=== PATIENT | male | born 1940 | race Caucasian/White ===

== ENCOUNTER 2016-06-03 05:02 | Observation (INO) | payer BC, OTHER ==
[2016-05-19 10:56] VITALS: BMI 32.0
[2016-05-19 11:09] LABS: BASO % 0.5 %; BASO ABS # 0.03 K/uL (0-0.2); COMPLETE YES; EOS % 2.7 %; HEMATOCRIT 37.4 % (42-52); IG% 0.5 %; LYMPH % 23.8 %; LYMPH ABS # 1.49 K/uL (1.2-3.4); MEAN CELL VOLUME 92.3 fL (80-100); MEAN CORPUSCULAR HEMOGLOBIN 33.1 pg (25-34); MEAN CORPUSCULAR HGB CONC 35.8 g/dl (32-36); MEAN PLATELET VOLUME 9.5 fL (7.4-10.4); MONO % 14.9 %; NEUT % 57.6 %; PLATELET COUNT 214 K/uL (130-400); RED BLOOD COUNT 4.05 M/uL (4.7-6.1); WHITE BLOOD COUNT 6.25 K/uL (4.8-10.8)
[2016-05-19 11:25] LABS: BUN/CREATININE RATIO 9.1 (10-20); CALCIUM 9.1 mg/dl (8.5-10.1); CREATININE 0.89 mg/dl (0.60-1.40); POTASSIUM 4.8 mmol/L (3.5-5.1)
[2016-05-19 11:26] LABS: URINE APPEARANCE CLEAR (CLEAR); URINE BILIRUBIN NEG (NEG); URINE COLOR YELLOW; URINE EPITHELIAL CELL AUTO 0-5 /lpf (0-5); URINE NITRITE NEG (NEG); UROBILINOGEN NEG (NEG)
[2016-05-19 11:27] LABS: MANUAL MICROSCOPIC REQUIRED? NO; REVIEW REQ? NO
--- NOTE | 2016-05-19 11:28 | PAT Medication Instructions ---
Service Date May 19, 2016. Current Home Medication List Albuterol Sulfate (Proventil Hfa), 2 PUFFS INH QID PRN for PRN Allopurinol (Zyloprim), 100 MG PO QAM Amlodipine (Norvasc), 5 MG PO QAM Atorvastatin (Lipitor), 10 MG PO Q2D Budesonide (Inhalation) (Pulmicort Flexhaler), 1 PUFFS INH BID Calcium Carbonate-Vitamin D (Calcium + D), 1 TAB PO BID Dexlansoprazole (Dexilant), 60 MG PO QAM Diclofenac (Voltaren), 75 MG PO BID Famotidine-Calcium Carbonate-M (Pepcid Complete), 1 CAP PO BID Gabapentin (Gabapentin), 3 TAB PO HS Hydroxyzine Hcl (Atarax), 10 MG PO HS PRN for Sleep Loperamide Hcl (Imodium), 2 CAP PO Q3D Montelukast Sodium (Singulair), 1 TAB PO QAM Mouthwashes (Biotene Dry Mouth Mouthwa), 1 DOSE PO QID Polyethylene Glycol-Propylene (Systane), 1 DROPS OP TID Sildenafil Citrate (Viagra), 50 MG PO UD Tamsulosin HCl (Tamsulosin HCl), 1 CAP PO QPM Telmisartan (Micardis), 80 MG PO QAM Xylitol (Mouth-Throat) (Xylimelts), 500 MG PO QID PRN for sight effects specialist Instructions For Your Scheduled Surgery - Check with surgeon for instructions: Diclofenac (Voltaren), 75 MG PO BID - Hold the following medications the morning of surgery: Telmisartan (Micardis), 80 MG PO QAM Sildenafil Citrate (Viagra), 50 MG PO UD Montelukast Sodium (Singulair), 1 TAB PO QAM Loperamide Hcl (Imodium), 2 CAP PO Q3D Xylitol (Mouth-Throat) (Xylimelts), 500 MG PO QID PRN for RN (mint) Famotidine-Calcium Carbonate-M (Pepcid Complete), 1 CAP PO BID Calcium Carbonate-Vitamin D (Calcium + D), 1 TAB PO BID - Take the following medications the morning of surgery with a sip of water: Polyethylene Glycol-Propylene (Systane), 1 DROPS OP TID Mouthwashes (Biotene Dry Mouth Mouthwa), 1 DOSE PO QID Dexlansoprazole (Dexilant), 60 MG PO QAM Budesonide (Inhalation) (Pulmicort Flexhaler), 1 PUFFS INH BID Atorvastatin (Lipitor), 10 MG PO Q2D Allopurinol (Zyloprim), 100 MG PO QAM Amlodipine (Norvasc), 5 MG PO QAM Albuterol Sulfate (Proventil Hfa), 2 PUFFS INH QID PRN for PRN (bring with you to hospital morning of surgery) - Take the following medications as scheduled the night before surgery: Tamsulosin HCl (Tamsulosin HCl), 1 CAP PO QPM Sildenafil Citrate (Viagra), 50 MG PO UD Polyethylene Glycol-Propylene (Systane), 1 DROPS OP TID Mouthwashes (Biotene Dry Mouth Mouthwa), 1 DOSE PO QID Loperamide Hcl (Imodium), 2 CAP PO Q3D Hydroxyzine Hcl (Atarax), 10 MG PO HS PRN for Sleep Gabapentin (Gabapentin), 3 TAB PO HS Famotidine-Calcium Carbonate-M (Pepcid Complete), 1 CAP PO BID Calcium Carbonate-Vitamin D (Calcium + D), 1 TAB PO BID Budesonide (Inhalation) (Pulmicort Flexhaler), 1 PUFFS INH BID Atorvastatin (Lipitor), 10 MG PO Q2D Albuterol Sulfate (Proventil Hfa), 2 PUFFS INH QID PRN for PRN If you have any questions please call us at [phone] (Maggie Mcelroy PA-C) or [phone] or [phone]
--- NOTE | 2016-05-19 11:59 | DIAGNOSTIC IMAGING REPORT ---
CHEST PREADMISSION(PA/LAT) CLINICAL HISTORY: Preoperative chest COMPARISON STUDY: 02/04/2015 FINDINGS: The cardiac and mediastinal contours remain stable. There are left hilar and mediastinal calcifications. There is a calcified granuloma within left midlung zone.[ There is no acute rectal consolidation. There is no failure. There are no pleural effusions. IMPRESSION: Old post inflammatory changes. No active disease in the chest. Electronically signed by: Arcadio Aiken M.D. 05/19/2016 11:58 AM Dictated Date/Time: 05/19/2016 11:57 AM
[2016-06-03] VITALS (9 sets, daily range): BP systolic 123–161; BP diastolic 68–80; PULSE 66–91; TEMP 36.4–36.7; O2SAT 96–99; Ht 175.3 cm; Wt 100.5 kg
[~2016-06-03] VITALS: Ht 175.3 cm; Wt 100.5 kg
[~2016-06-03 05:02] MED LIST: ALBUAER9 INH; ALLO100T PO; AMLO-110 PO; ATOR10TA88 PO; ATR10 PO; BUDE180I INH; CALC600T9 PO; DEXL60CA4 PO; DICL-201 PO; FAMOCHW27 PO; FLM4 PO; GABA1CAP4 PO; IMD/2 PO; MONT1TAB3 PO; MOUTLIQ79 PO; POLYSOL4 OP; TELM80TA PO; VGR50 PO; [UNRECOGNIZED DRUG - CODE] PO
[2016-06-03] MEDS ORDERED: CIPROFLOXACIN / D5W 400 MG IV SCH (06:00)
[2016-06-03] MEDS ORDERED: LACTATED RINGER'S 1000ML IV SCH (06:00)
[2016-06-03] MEDS ORDERED: Levothyroxine PO (06:11)
[2016-06-03] MEDS ORDERED: PROPOFOL IV EMULSION 10 MG/ML 20 ML VIAL IV ONE (06:38)
[2016-06-03] MEDS ORDERED: LIDOCAINE HCL 2% 2 ML VIAL (20MG/ML) ONE (06:38)
[2016-06-03] MEDS ORDERED: FENTANYL CITRATE INJ 50 MCG/1 ML 2 ML VIAL ONE (06:38)
[2016-06-03] MEDS ORDERED: ONDANSETRON INJ 2 MG/ML 2 ML VIAL ONE (06:38)
[2016-06-03] MEDS ORDERED: MIDAZOLAM HCL 1 MG/ML 2ML VIAL ONE (06:38)
[2016-06-03] MEDS ORDERED: DEXAMETHASONE SOD INJ 4 MG/ML VIAL ONE (06:38)
--- NOTE | 2016-06-03 07:10 | History & Physical Bridge Note ---
H&P Re-Evaluation Bridge Note: I have examined the patient, reviewed the History & Physical and in the interval since the performance of the History & Physical I have noted the following changes of clinical significance: No changes noted
[2016-06-03] MEDS ORDERED: ATROPINE SULFATE 0.1 MG/ML 5ML SYR IV PRN (07:45)
[2016-06-03] MEDS ORDERED: LABETALOL HCL IV 5 MG/ML 20ML IV PRN (07:45)
[2016-06-03] MEDS ORDERED: ONDANSETRON INJ 2 MG/ML 2 ML VIAL IV PRN (07:45)
[2016-06-03] MEDS ORDERED: FENTANYL CITRATE INJ 50 MCG/1 ML 2 ML VIAL IV PRN (07:45)
[2016-06-03] MEDS ORDERED: WATER, STERILE FOR INJ 10 ML VIAL ONE (08:07)
[2016-06-03] MEDS ORDERED: EpHEDrine SULFATE INJ 50 MG/ML AMP ONE (08:07)
--- NOTE | 2016-06-03 08:39 | [facility] Post Operative Brief Note ---
Immediate Operative Summary Operative Date Jun 03, 2016. Pre-Operative Diagnosis Benign prostatic hypertrophy with urinary obstruction Post-Operative Diagnosis Benign prostatic hypertrophy with urinary obstruction Procedure(s) Performed Button/Bipolar Transurethral Resection Prostate Surgeon Dr. Alas Sheet Rock Layer Surgeon(s) none Estimated Blood Loss 30 cc Findings small obstructing prostate Specimens none per surgeon Drains 22 danielson
[2016-06-03] MEDS ORDERED: IV FLUIDS COMPLETED PRN (09:00)
--- NOTE | 2016-06-03 10:07 | OPERATIVE REPORT ---
DATE OF OPERATION: 06/03/2016 PREOPERATIVE DIAGNOSIS: Benign prostatic hypertrophy with obstruction. POSTOPERATIVE DIAGNOSIS: Same. PROCEDURE PERFORMED: TURP. SURGEON: Dr. Alas. ANESTHESIA: General. INDICATIONS: The patient is a 75-year-old male with longstanding history of BPH with obstruction. He has been on oral medications and had a transurethral needle ablation in the distant past. He wishes to proceed to more definitive therapy with a transurethral resection of his prostate. DESCRIPTION OF THE PROCEDURE: The patient was taken to the operating room where general anesthesia was administered. He had Venodyne stockings placed and was given preoperative antibiotics. He was placed in dorsal lithotomy position and prepped and draped in the usual sterile fashion. A 21-Egyptian cystoscope was passed per urethra. The bladder was carefully examined with 30 and 70 degree lens and no further tumor seen. There was a moderate intravesical prostate and then the resectoscope was passed using the button. The prostate was resected, initially the bladder neck posteriorly down flush to the wall of the bladder with slightly further grooves on the right and left side. Next, the first half of the prostate was resected and then the second half of the prostate was resected starting from the lateral liao and then going anteriorly first on the right side and then the left side. This was continued down to the verumontanum. Care was taken not to resect beyond the verumontanum. There was minimal bleeding, but when there was bleeding it was cauterized. At the end of the procedure, there was a good channel from the verumontanum into the bladder. There were some stones that were irrigated out that indicated where the resection should stop. At the end of the procedure, there was no visible bleeding and the patient had a 22-Egyptian Hendrickson catheter passed with a catheter guide and 30 mL was inflated into the bladder. The patient was then transferred to the recovery room in stable condition. I attest to the content of the Intraoperative Record and any orders documented therein. Any exceptio ns are noted below.
--- NOTE | 2016-06-03 10:10 | Anesthesiology Progress Note ---
Anesthesia Post Op Note Date & Time Jun 03, 2016 at 10:10 Vital Signs Pain Intensity: 2 Vital Signs Past 12 Hours Date Time Temp Pulse Resp B/P Pulse Ox O2 Delivery O2 Flow Rate FiO2 06/03/16 09:47 65 11 06/03/16 09:47 65 11 100 06/03/16 09:45 144/69 06/03/16 09:42 65 14 100 06/03/16 09:42 65 14 06/03/16 09:40 148/72 06/03/16 09:37 64 13 06/03/16 09:37 64 13 100 06/03/16 09:36 66 13 06/03/16 09:36 66 13 100 06/03/16 09:35 146/74 06/03/16 09:31 64 13 100 06/03/16 09:31 65 13 06/03/16 09:30 143/71 06/03/16 09:26 64 10 100 06/03/16 09:26 63 10 06/03/16 09:25 138/76 06/03/16 09:21 67 16 06/03/16 09:21 68 16 100 06/03/16 09:20 144/71 06/03/16 09:16 62 7 100 06/03/16 09:16 63 7 06/03/16 09:15 138/73 06/03/16 09:11 64 22 100 06/03/16 09:11 64 22 06/03/16 09:10 147/73 06/03/16 09:06 63 12 06/03/16 09:06 62 12 100 06/03/16 09:05 145/70 06/03/16 09:02 36.4 64 18 145/70 100 Nasal Cannula 2 06/03/16 09:01 68 17 100 06/03/16 09:01 65 17 06/03/16 09:00 138/76 06/03/16 08:56 64 12 06/03/16 08:56 64 12 100 06/03/16 08:55 139/76 06/03/16 08:51 66 33 06/03/16 08:51 66 33 100 06/03/16 08:50 137/72 06/03/16 08:46 67 15 06/03/16 08:46 67 15 99 06/03/16 08:45 151/63 06/03/16 08:42 68 20 98 06/03/16 08:42 68 20 06/03/16 08:40 140/64 06/03/16 08:37 73 17 98 06/03/16 08:37 73 17 06/03/16 08:35 148/66 06/03/16 08:32 68 10 145/63 99 06/03/16 08:32 36.0 70 16 145/63 99 Mask 10 06/03/16 08:32 64 10 06/03/16 05:51 36.4 66 18 161/80 99 Room Air Notes Mental Status: alert / awake / arousable, participated in evaluation Pt Amnestic to Procedure: Yes Nausea / Vomiting: adequately controlled Pain: adequately controlled Airway Patency, RR, SpO2: stable & adequate BP & HR: stable & adequate Hydration State: stable & adequate Anesthetic Complications: no major complications apparent
[2016-06-03] MEDS: OXYCODONE/ACETAMINOPHEN 5-325 TAB PO PRN (11:25)
[2016-06-03] MEDS ORDERED: NURSING VERBAL MED ORDER SCH (18:30)
[2016-06-03] MEDS: SODIUM CHLORIDE 0.45% 1000ML 1,000 ML IV SCH (19:39)
[2016-06-03] MEDS ORDERED: ALBUTEROL HFA 8 GM INHALER INH PRN (19:45)
[2016-06-03] MEDS: hydrOXYzine HCL 10 MG TAB PO PRN (20:52)
[2016-06-03] MEDS: BUDESONIDE 90 MCG INH INH SCH (20:53)
[2016-06-03] MEDS: ARTIFICIAL TEARS OP SOLN OP SCH ×2 (20:54)
[2016-06-03] MEDS ORDERED: GABAPENTIN 300 MG CAP PO SCH (21:00)
[2016-06-04] MEDS: OXYCODONE/ACETAMINOPHEN 5-325 TAB PO PRN (02:13)
[2016-06-04 03:34] VITALS: BP 125/67; PULSE 74; TEMP 36.7; O2SAT 96
[2016-06-04] MEDS: SODIUM CHLORIDE 0.45% 1000ML 1,000 ML IV SCH (05:30)
[2016-06-04 07:52] VITALS: BP 130/78; PULSE 66; TEMP 36.4; O2SAT 97
[2016-06-04 09:00] VITALS: O2SAT 97
[2016-06-04] MEDS ORDERED: TELMISARTAN 40 MG TAB PO SCH (09:00)
[2016-06-04] MEDS ORDERED: PANTOprazole SOD 40 MG TAB PO SCH (09:00)
[2016-06-04] MEDS ORDERED: ALLOPURINOL 100 MG TAB PO SCH (09:00)
[2016-06-04] MEDS ORDERED: MONTELUKAST SOD 10 MG TAB PO SCH (09:00)
[2016-06-04] MEDS ORDERED: AMLODIPINE BESYLATE 5 MG TAB PO SCH (09:00)
[2016-06-04] MEDS: BUDESONIDE 90 MCG INH INH SCH (09:03)
[2016-06-04] MEDS: hydrOXYzine HCL 10 MG TAB PO PRN (09:03)
[2016-06-04] MEDS: ARTIFICIAL TEARS OP SOLN OP SCH ×2 (09:04)
--- NOTE | 2016-06-04 09:15 | Progress Note ---
Subjective Date of Service: Jun 04, 2016. (Mimi Villanueva CRNP) Subjective Pt evaluation today including: conversation w/ patient, conversation w/ family , physical exam, chart review, lab review Voiding: danielson catheter in place 75 year old male POD#1 TURP. Pt is doing well post op Danielson intact draining clear yellow urine free of clots. He is tolerating clear liquid diet- will advance to regular gluten free diet. IVF infusing OOB ambulating in hallway Passing flatus. AFVSS (Mimi Villanueva CRNP) Review of Systems Constitutional: No chills, No fever Eyes: No worsening of vision ENT: No hearing loss Respiratory: No cough, No shortness of breath Cardiac: No chest pain Abdomen: No nausea, No pain Musculoskeletal: No joint pain Psychiatric: No depression symptoms Heme: No abnormal bleeding/bruising Endo: No fatigue Skin: No rash (Mimi Villanueva CRNP) Objective Vital Signs Date Time Temp Pulse Resp B/P Pulse Ox O2 Delivery O2 Flow Rate FiO2 06/04/16 09:00 97 Room Air 06/04/16 07:52 36.4 66 16 130/78 97 Room Air 06/04/16 07:46 Room Air 06/04/16 03:34 36.7 74 16 125/67 96 Room Air 06/04/16 00:25 Room Air 06/03/16 23:06 36.7 85 18 133/73 97 Room Air 06/03/16 20:17 36.5 90 18 149/69 96 Room Air 06/03/16 15:42 36.5 91 18 123/72 96 Room Air 06/03/16 14:15 36.5 86 16 129/68 97 Room Air 06/03/16 13:15 36.7 91 16 124/76 97 2.0 06/03/16 12:15 77 16 127/71 99 2.0 06/03/16 11:45 36.6 72 16 146/72 98 2.0 06/03/16 11:15 36.4 71 16 138/75 98 Nasal Cannula 2.0 06/03/16 11:15 98 Nasal Cannula 2.0 06/03/16 11:15 98 Room Air 2.0 06/03/16 10:33 67 13 100 06/03/16 10:33 71 13 06/03/16 10:30 137/72 06/03/16 10:28 67 13 06/03/16 10:28 68 13 100 06/03/16 10:25 129/72 06/03/16 10:23 70 12 99 06/03/16 10:23 70 12 06/03/16 10:20 125/69 06/03/16 10:18 68 10 100 06/03/16 10:18 68 10 06/03/16 10:15 138/67 06/03/16 10:13 66 12 06/03/16 10:13 67 12 100 06/03/16 10:10 142/69 06/03/16 10:08 67 11 06/03/16 10:08 68 11 100 06/03/16 10:05 139/72 06/03/16 10:03 70 14 100 06/03/16 10:03 72 14 06/03/16 10:00 144/74 06/03/16 09:58 66 13 06/03/16 09:58 66 13 100 06/03/16 09:55 131/97 06/03/16 09:53 66 12 06/03/16 09:53 65 12 100 06/03/16 09:50 151/75 06/03/16 09:48 68 14 100 06/03/16 09:48 67 14 06/03/16 09:47 65 11 06/03/16 09:47 65 11 100 06/03/16 09:45 144/69 06/03/16 09:42 65 14 100 06/03/16 09:42 65 14 06/03/16 09:40 148/72 06/03/16 09:37 64 13 06/03/16 09:37 64 13 100 06/03/16 09:36 66 13 06/03/16 09:36 66 13 100 06/03/16 09:35 146/74 06/03/16 09:31 64 13 100 06/03/16 09:31 65 13 06/03/16 09:30 143/71 06/03/16 09:26 64 10 100 06/03/16 09:26 63 10 06/03/16 09:25 138/76 06/03/16 09:21 67 16 06/03/16 09:21 68 16 100 06/03/16 09:20 144/71 06/03/16 09:16 62 7 100 06/03/16 09:16 63 7 06/03/16 09:15 138/73 06/03/16 09:11 64 22 100 06/03/16 09:11 64 22 06/03/16 09:10 147/73 06/03/16 09:06 63 12 06/03/16 09:06 62 12 100 06/03/16 09:05 145/70 (Mimi Villanueva CRNP) Physical Exam General Appearance: WD/WN, no apparent distress Eyes: normal inspection ENT: hearing grossly normal Neck: no JVD Respiratory/Chest: no respiratory distress, no accessory muscle use Abdomen: soft Extremities: normal inspection, no pedal edema, no calf tenderness Neurologic/Psychiatric: alert, normal mood/affect, oriented x 3 Skin: normal color, warm/dry (Mimi Villanueva CRNP) Assessment and Plan s/p TURP Doing well Will advance diet to regular gluten free. Personally pulled danielson without difficulty If he is able to tolerate diet and passes TOV- okay to d/c home. If unable to void please bladder scan and call . Rx for Macrodantin, colace and stool softener. (Mimi Villanueva CRNP)
[2016-06-04] MEDS ORDERED: NITR1CAP32 PO (09:19)
[2016-06-04] MEDS ORDERED: CLC100 PO (09:19)
[2016-06-04] MEDS ORDERED: OXYC-57 PO (09:19)
--- NOTE | 2016-06-04 09:21 | Discharge Instructions ---
Discharge Instructions Date of Service Jun 04, 2016. (Mimi Villanueva CRNP) Admission Reason for Admission: Benign Prostatic Hypertrophy (Mimi Villanueva CRNP) Discharge Discharge Diagnosis / Problem: Benign prostatic hypertrophy (Mimi Villanueva CRNP) Discharge Goals Goal(s): Improve function, Improve disease control, Prevent Disease Progression (Mimi Villanueva CRNP) Activity Recommendations Activity Limitations: per Instructions/Follow-up section . (Mimi Villanueva CRNP) Instructions / Follow-Up Instructions / Follow-Up 1. Do not lift >15lbs x 6 weeks. 2. No heavy exercise x 6 weeks. You may engage in light activity such as walking and stairs as tolerated. 3. No sexual intercourse until cleared by Dr. Alas. 4. Do not drive while taking narcotics. 5. Finish all of the antibiotic you have been prescribed. 6. Follow-up as scheduled. Please call our office at [phone] if you need to reschedule for any reason. . (Mimi Villanueva CRNP) Current Hospital Diet Hospital Diet(s): Clear Liquid Diet, Gluten Free Diet (Mimi Villanueva CRNP) Discharge Diet Recommended Diet: Regular Diet (gluten free) (Mimi Villanueva CRNP) Procedures Procedures Performed: Button/Bipolar Transurethral Resection Prostate (Mimi Villanueva CRNP) Pending Studies Studies pending at discharge: no (Mimi Villanueva CRNP) Medical Emergencies . Who to Call and When: Medical Emergencies: If at any time you feel your situation is an emergency, please call 911 immediately. . (Mimi Villanueva CRNP) Non-Emergent Contact Non-Emergency issues call your: Primary Care Provider, Urologist Call Non-Emergent contact if: temperature is above 101.5 . (Mimi Villanueva CRNP) . "Provider Documentation" section prepared by Mimi Villanuvea. (Mimi Villanueva CRNP) VTE Core Measure Inpt VTE Proph given/why not?: Unfractionated heparin SQ, SCD's (Mimi Villanueva CRNP) [place] Drug Monitoring Program Search Results: patient reviewed within database (Mimi Villanueva CRNP)
[2016-06-04 09:55] VITALS: BP 130/78; PULSE 66; TEMP 36.4; O2SAT 97
[2016-06-04] MEDS ORDERED: ATORVASTATIN 10 MG TAB PO SCH (21:00)
--- NOTE | 2016-06-09 14:40 | DISCHARGE SUMMARY ---
HISTORY OF PRESENTATION: The patient is a 75-year-old male with a long history of BPH who has been on medications who elected to have a TURP for obstructive and irritative voiding symptoms of BPH. The patient was admitted as an outpatient on 06/03/2016 and had an uncomplicated transurethral resection of his prostate. At the end of the procedure, he had minimal bleeding and a good result with open channel from his verumontanum into his bladder. A Hendrickson catheter was placed. The patient's urine was cleared. He was admitted to the hospital for overnight observation. The next day his Hendrickson was removed, he was able to void and he was discharged to home in stable condition with instructions to follow up or call for any problems.
[2016-08-23] MEDS ORDERED: LEVO150T9 PO (14:51)
[2016-08-23] MEDS ORDERED: GLC/500 PO (14:51)
[2016-08-23] MEDS ORDERED: AMLO-114 PO (14:51)
[2016-08-23] MEDS ORDERED: BUDE180I INH (14:53)
[2016-08-23] MEDS ORDERED: VGR50 PO (14:53)
[2016-08-23] MEDS ORDERED: PEPCID PO (14:53)
== END 2016-06-04 12:43 | disposition home or self-care (01) ==
LOC: ENRESERVDT → ENRESERVTM → C.ACU 05:02 → C.MSN 08:43
PROVIDERS: ADMIT Urology; ATTEND Urology
DX: N40.1 Benign prostatic hyperplasia with lower urinary tract symptoms (principal); N13.8 Other obstructive and reflux uropathy; J45.909 Unspecified asthma, uncomplicated; K21.9 Gastro-esophageal reflux disease without esophagitis; E78.00 Pure hypercholesterolemia, unspecified; I10 Essential (primary) hypertension; Z80.0 Family history of malignant neoplasm of digestive organs; Z82.49 Family history of ischemic heart disease and other diseases of the circulatory system

== ENCOUNTER → 2016-06-17 | Outpatient (CLI) | payer BC ==
[~2016-06-17] MED LIST changes: +AMLO-114 PO; +ATOR10TA82 PO; -ATOR10TA88 PO; +CLC100 PO; -FLM4 PO; +GLC/500 PO; +LEVO150T9 PO; +Levothyroxine PO; +OXYC-57 PO; +PEPCID PO
--- NOTE | 2016-06-23 08:06 | CODING QUERY MEDICAL NECESSITY ---
SUPPORTING DIAGNOSIS NEEDED Salvador HERNANDEZ, A supporting diagnosis is required for the test/procedure performed on this patient in order for us to be reimbursed by the patient's insurance. Please provide a supporting diagnosis for the following test/procedure listed below next to the test name along with your signature. *If there is no additional diagnosis for this patient that would support the following test/procedure please document that below next to the test/procedure. Test(s)/Procedure(s) that require a supporting diagnosis: * ([id number]) DXA BONE DENSITY, AXIAL DIAGNOSIS: DATE OF SERVICE: 06/17/16 Provider Signature: Date: Thank you Donell Cadena [facility] Information Management Once completed, please kindly fax back to [phone] For questions please call [phone]
== END | disposition home or self-care (01) ==
LOC: C.MAMM 10:30
PROVIDERS: ATTEND Registered Nurse
DX: K21.9 Gastro-esophageal reflux disease without esophagitis (principal); K90.0 Celiac disease

== ENCOUNTER → 2016-06-17 | Outpatient (CLI) | payer BC | END | disposition home or self-care (01) | LOC: C.LABSPEC 17:31 | PROVIDERS: ATTEND Urology | DX: R39.9 Unspecified symptoms and signs involving the genitourinary system (principal) ==

== ENCOUNTER → 2016-07-05 | Outpatient (CLI) | payer BC ==
[2016-07-05 19:18] LABS: ALT/SGPT 58 U/L (12-78); AST/SGOT 25 U/L (15-37); BLOOD UREA NITROGEN 9 mg/dl (7-18); BUN/CREATININE RATIO 8.6 (10-20); CALCIUM 9.7 mg/dl (8.5-10.1); CARBON DIOXIDE 28 mmol/L (21-32); CHLORIDE 101 mmol/L (98-107); CHOLESTEROL 161 mg/dl (0-200); CREATININE 0.99 mg/dl (0.60-1.40); GLUCOSE 203 mg/dl (70-99); HDL CHOLESTEROL 40 mg/dl; LDL CHOLESTEROL CALCULATED 88 mg/dl; POTASSIUM 4.2 mmol/L (3.5-5.1); SODIUM 136 mmol/L (136-145); TRIGLYCERIDES 165 mg/dl (0-150); VERY LOW DENSITY LIPOPROT CALC 33 mg/dl
[2016-07-05 19:26] LABS: ALB/GLOB RATIO 1.3 (0.9-2); ALKALINE PHOSPHATASE 78 U/L (45-117); THYROID STIMULATING HORMONE 0.232 uIu/ml (0.300-4.500)
[2016-07-06 06:32] LABS: ESTIMATED AVERAGE GLUCOSE 163 mg/dl; HA1C FLAG Normal (Normal)
== END | disposition home or self-care (01) ==
LOC: C.LABBFT 12:06
PROVIDERS: ATTEND Internal Medicine
DX: R73.01 Impaired fasting glucose (principal); E78.00 Pure hypercholesterolemia, unspecified; E03.9 Hypothyroidism, unspecified

== ENCOUNTER 2016-09-16 06:23 | Day surgery (SDC) | payer BC ==
[2016-08-23 14:57] VITALS: BMI 31.0
--- NOTE | 2016-08-23 15:34 | PAT Medication Instructions ---
Service Date Aug 23, 2016. Current Home Medication List Albuterol Sulfate (Proventil Hfa), 2 PUFFS INH QID PRN for PRN Allopurinol (Zyloprim), 100 MG PO QAM Amlodipine (Norvasc), 10 MG PO QAM Atorvastatin (Lipitor), 10 MG PO Q2D Budesonide (Inhalation) (Pulmicort Flexhaler), 1 PUFFS INH BID Calcium Carbonate-Vitamin D (Calcium + D), 1 TAB PO BID Dexlansoprazole (Dexilant), 60 MG PO QAM PRN for PRN Diclofenac (Voltaren), 75 MG PO QAM Gabapentin (Gabapentin), 3 TAB PO HS Hydroxyzine Hcl (Atarax), 10 MG PO HS PRN for Sleep Levothyroxine Sodium (Levothyroxine Sodium), 1 TAB PO HS Loperamide Hcl (Imodium), 2 CAP PO Q3D Metformin Hcl (Glucophage), 500 MG PO BID Montelukast Sodium (Singulair), 1 TAB PO QAM Mouthwashes (Biotene Dry Mouth Mouthwa), 1 DOSE PO QID Polyethylene Glycol-Propylene (Systane), 1 DROPS OP TID Sildenafil Citrate (Viagra), 50 MG PO PRN Telmisartan (Micardis), 80 MG PO QAM Xylitol (Mouth-Throat) (Xylimelts), 500 MG PO QID PRN for RN [Pepcid], 10 MG PO PRN Medication Instructions For Your Scheduled Surgery Diclofenac (Voltaren), 75 MG PO QAM (per surgeon instructions) - Hold the following medications 48 hours prior to surgery: Metformin Hcl (Glucophage), 500 MG PO BID - Hold the following medications 24 hours prior to surgery: Sildenafil Citrate (Viagra), 50 MG PO PRN - Hold the following medications the morning of surgery: Xylitol (Mouth-Throat) (Xylimelts), 500 MG PO QID PRN for RN Telmisartan (Micardis), 80 MG PO QAM Loperamide Hcl (Imodium), 2 CAP PO Q3D Calcium Carbonate-Vitamin D (Calcium + D), 1 TAB PO BID - Take the following medications the morning of surgery with a sip of water: Pepcid 10 MG PO PRN Polyethylene Glycol-Propylene (Systane), 1 DROPS OP TID Mouthwashes (Biotene Dry Mouth Mouthwa), 1 DOSE PO QID (do not swallow) Montelukast Sodium (Singulair), 1 TAB PO QAM Dexlansoprazole (Dexilant), 60 MG PO QAM PRN for PRN Budesonide (Inhalation) (Pulmicort Flexhaler), 1 PUFFS INH BID Allopurinol (Zyloprim), 100 MG PO QAM Amlodipine (Norvasc), 10 MG PO QAM Albuterol Sulfate (Proventil Hfa), 2 PUFFS INH QID PRN for PRN (bring with you to hospital on day of surgery) - Take the following medications as scheduled the night before surgery: Xylitol (Mouth-Throat) (Xylimelts), 500 MG PO QID PRN for RN Polyethylene Glycol-Propylene (Systane), 1 DROPS OP TID Mouthwashes (Biotene Dry Mouth Mouthwa), 1 DOSE PO QID Loperamide Hcl (Imodium), 2 CAP PO Q3D Levothyroxine Sodium (Levothyroxine Sodium), 1 TAB PO HS Hydroxyzine Hcl (Atarax), 10 MG PO HS PRN for Sleep Gabapentin (Gabapentin), 3 TAB PO HS Calcium Carbonate-Vitamin D (Calcium + D), 1 TAB PO BID Budesonide (Inhalation) (Pulmicort Flexhaler), 1 PUFFS INH BID Albuterol Sulfate (Proventil Hfa), 2 PUFFS INH QID PRN for PRN Atorvastatin (Lipitor), 10 MG PO Q2D If you have any questions please call us at [phone] or [phone] ( Margareth) or [phone]
[2016-08-23 15:55] LABS: BASO % 0.5 %; BASO ABS # 0.03 K/uL (0-0.2); COMPLETE YES; EOS % 1.8 %; HEMATOCRIT 38.1 % (42-52); IG% 0.2 %; LYMPH % 24.9 %; LYMPH ABS # 1.53 K/uL (1.2-3.4); MEAN CORPUSCULAR HEMOGLOBIN 33.2 pg (25-34); MEAN CORPUSCULAR HGB CONC 34.9 g/dl (32-36); MEAN PLATELET VOLUME 9.9 fL (7.4-10.4); MONO % 12.2 %; NEUT % 60.4 %; PLATELET COUNT 232 K/uL (130-400); RED BLOOD COUNT 4.01 M/uL (4.7-6.1); WHITE BLOOD COUNT 6.15 K/uL (4.8-10.8)
[2016-08-23 16:12] LABS: BUN/CREATININE RATIO 6.1 (10-20); CALCIUM 9.9 mg/dl (8.5-10.1); CREATININE 1.1 mg/dl (0.60-1.40); POTASSIUM 4.4 mmol/L (3.5-5.1)
[~2016-09-16] VITALS: Ht 175.3 cm; Wt 90.0 kg
[~2016-09-16 06:23] MED LIST changes: -AMLO-110 PO; -ATOR10TA82 PO; +ATOR10TA88 PO; -CLC100 PO; -FAMOCHW27 PO; +LACTATED RINGER'S 1000ML 1,000 ML IV SCH; -Levothyroxine PO; -OXYC-57 PO
[2016-09-16 07:09] VITALS: BP 149/73; PULSE 62; TEMP 36.5; O2SAT 97; Ht 175.3 cm; Wt 90.0 kg
--- NOTE | 2016-09-16 07:31 | History & Physical Bridge Note ---
H&P Re-Evaluation Bridge Note: I have examined the patient, reviewed the History & Physical and in the interval since the performance of the History & Physical I have noted the following changes of clinical significance: No changes noted pt marked, bedside
[2016-09-16] MEDS ORDERED: PROPOFOL IV EMULSION 10 MG/ML 20 ML VIAL IV ONE (07:49)
[2016-09-16] MEDS ORDERED: DEXAMETHASONE SOD INJ 4 MG/ML VIAL ONE (07:49)
[2016-09-16] MEDS ORDERED: ONDANSETRON INJ 2 MG/ML 2 ML VIAL ONE (07:49)
[2016-09-16] MEDS ORDERED: LIDOCAINE HCL 2% 2 ML VIAL (20MG/ML) ONE (07:49)
[2016-09-16] MEDS ORDERED: FENTANYL CITRATE INJ 50 MCG/1 ML 2 ML VIAL ONE ×2 (07:50→09:27)
[2016-09-16] MEDS ORDERED: BUPIVACAINE 0.5 % 5 MG/1 ML MPF 30ML VIAL ONE (07:50)
[2016-09-16] MEDS ORDERED: BACITRACIN 50000 UNIT VIAL ONE (07:50)
[2016-09-16] MEDS ORDERED: CEFAZOLIN SOD 1 GM VIAL ONE (08:19)
[2016-09-16] MEDS ORDERED: FENTANYL CITRATE INJ 50 MCG/1 ML 2 ML VIAL IV PRN (09:00)
[2016-09-16] MEDS ORDERED: ATROPINE SULFATE 0.1 MG/ML 5ML SYR IV PRN (09:00)
[2016-09-16] MEDS ORDERED: ONDANSETRON INJ 2 MG/ML 2 ML VIAL IV PRN ×2 (09:00→09:30)
[2016-09-16] MEDS ORDERED: EpHEDrine SULFATE INJ 50 MG/ML AMP IV PRN (09:00)
--- NOTE | 2016-09-16 09:14 | [facility] Post Operative Brief Note ---
Immediate Operative Summary Operative Date Sep 16, 2016. Pre-Operative Diagnosis Right recurrent inguinal hernia Post-Operative Diagnosis recurrent direct defect and lipoma cord Procedure(s) Performed Open Recurrent Right Direct Inguinal Hernia Repair with Mesh(marlex) Lipoma of cord (excision) Surgeon Dr Escudero Surgical Services Manager Surgeon(s) Juana Dove PA-C Estimated Blood Loss 5ml Findings rec direct defect and long lipoma cord anne 10cm length Specimens A. Lipoma of cord Anesthesia .5% marcaine plain(1occ)
[2016-09-16] MEDS ORDERED: SODIUM CHLORIDE 0.9% 1000ML 1,000 ML IV SCH (09:20)
--- NOTE | 2016-09-16 09:21 | [facility] Operative Report ---
Operative Report Operative Date Sep 16, 2016. Pre-Operative Diagnosis Right recurrent inguinal hernia Post-Operative Diagnosis recurrent right direct hernia and lipoma cord Procedure(s) Performed open repair of direct rec hernia with marlex mesh and excision lipoma cord Surgeon Dr Escudero Shell Trim Tool Setter Surgeon(s) Juana Dove PA-C Estimated Blood Loss 5ml Findings direct defect and deepak(10cm) lipoma cord Specimens A. Lipoma of cord Anesthesia .5% marcaine plain(1occ) Complication(s) None Disposition Recovery Room / PACU Indications recurrent pain and bulge right groin s/p lap repair of hernia anne 3 years ago Description of Procedure open repair with 4 inch incision defined nerve and dissected rec direct defect and excised lipoma ligating base with 2-0 silk marlex mesh sutured with 2-0 nylon symp pubis selving portion ing ligament and conjoined tendon reconstruction int ring that only accomodate tip of hemostat, placed sub ext oblique fascia, 2-0 dexon sub cut latoya for skin edges dressing applied I attest to the content of the Intraoperative Record and any orders documented therein. Any exceptions are noted below.
[2016-09-16] MEDS ORDERED: OXYC-57 PO (09:22)
--- NOTE | 2016-09-16 09:26 | Discharge Instructions ---
Discharge Instructions Date of Service Sep 16, 2016. Admission Reason for Admission: Recurrent Right Inguinal Hernia Discharge Discharge Diagnosis / Problem: Recurrent Right Inguinal Hernia Discharge Goals Goal(s): Decrease discomfort, Improve function Activity Recommendations Activity Limitations: as noted below Lifting Limitations: no more than 10 pounds Exercise/Sports Limitations: until after follow-up appointment May Resume Sexual Activity: after follow-up appointment Shower/Bathe: tomorrow Driving or Machine Use: resume 3 days after discharge . Instructions / Follow-Up Instructions / Follow-Up It is recommended that you place an ice pack on the area for the next [address]. [address] ice pack directly on the skin. Please follow-up in the office with nursing for staple removal. Please call to make an appointment if you do not have one already. Please call [phone] with any questions or concerns. Our office is located at [address] [place] [address] [place] Current Hospital Diet Patient's current hospital diet: Discharge Diet Recommended Diet: Regular Diet Procedures Procedures Performed: Open Recurrent Right Direct Inguinal Hernia Repair with Mesh(marlex) Lipoma of cord (excision) Pending Studies Studies pending at discharge: yes List of pending studies: Pathology report. Laboratory Results Hemoglobin A1c Test 07/05/16 12:18 Range/Units Estimated Average Glucose 163 mg/dl Hemoglobin A1c 7.3 H 4.5-5.6 % Lipid Panel Test 07/05/16 12:18 Range/Units Triglycerides Level 165 H 0-150 mg/dl Cholesterol Level 161 0-200 mg/dl HDL Cholesterol 40 mg/dl Cholesterol/HDL Ratio 4.0 LDL Cholesterol, Calculated 88 mg/dl Medical Emergencies . Who to Call and When: Medical Emergencies: If at any time you feel your situation is an emergency, please call 911 immediately. . Non-Emergent Contact Non-Emergency issues call your: Primary Care Provider, Surgeon Call Non-Emergent contact if: temperature is above 101.5, your pain is not controlled, wound has increased drainage, wound has increased redness . "Provider Documentation" section prepared by Juana Dove. . VTE Core Measure Inpt VTE Proph given/why not?: SCD's [place] Drug Monitoring Program Search Results: patient reviewed within database, no issues identified
[2016-09-16] MEDS ORDERED: OXYCODONE/ACETAMINOPHEN 5-325 TAB PO PRN ×2 (09:30)
[2016-09-16 10:10] VITALS: BP 135/66; PULSE 54; TEMP 36.5; O2SAT 96
--- NOTE | 2016-09-16 10:16 | Anesthesiology Progress Note ---
Anesthesia Post Op Note Date & Time Sep 16, 2016 at 10:16 Vital Signs Pain Intensity: 1 Vital Signs Past 12 Hours Date Time Temp Pulse Resp B/P (MAP) Pulse Ox O2 Delivery O2 Flow Rate FiO2 09/16/16 10:02 60 16 09/16/16 10:02 60 16 97 09/16/16 10:01 130/64 09/16/16 09:57 59 16 95 09/16/16 09:57 59 16 09/16/16 09:56 133/63 09/16/16 09:52 61 15 09/16/16 09:52 60 15 97 09/16/16 09:51 133/64 09/16/16 09:48 36.7 62 16 133/64 (73) 97 Room Air 09/16/16 09:47 61 4 97 09/16/16 09:47 61 4 09/16/16 09:46 139/70 09/16/16 09:42 59 6 98 09/16/16 09:42 59 6 09/16/16 09:41 149/72 09/16/16 09:37 57 2 09/16/16 09:37 56 2 94 09/16/16 09:36 55 12 130/68 97 09/16/16 09:36 55 12 09/16/16 09:31 58 8 09/16/16 09:31 59 8 127/68 98 09/16/16 09:26 61 12 123/64 100 09/16/16 09:26 60 12 09/16/16 09:22 125/63 09/16/16 09:21 51 13 100 09/16/16 09:21 36.0 60 16 125/63 100 Mask 10 09/16/16 09:21 51 13 09/16/16 07:09 36.5 62 18 149/73 (98) 97 Room Air Notes Mental Status: alert / awake / arousable, participated in evaluation Pt Amnestic to Procedure: Yes Nausea / Vomiting: adequately controlled Pain: adequately controlled Airway Patency, RR, SpO2: stable & adequate BP & HR: stable & adequate Hydration State: stable & adequate Anesthetic Complications: no major complications apparent
[2016-09-16 10:40] VITALS: BP 137/69; PULSE 63; TEMP 36.5; O2SAT 97
[2016-09-16 11:10] VITALS: BP 129/64; PULSE 63; TEMP 36.5; O2SAT 96
== END 2016-09-16 11:45 | disposition home or self-care (01) ==
LOC: C.ACU 06:23
PROVIDERS: ATTEND Surgery
DX: K40.91 Unilateral inguinal hernia, without obstruction or gangrene, recurrent (principal); D17.6 Benign lipomatous neoplasm of spermatic cord; I10 Essential (primary) hypertension; E78.00 Pure hypercholesterolemia, unspecified; E11.42 Type 2 diabetes mellitus with diabetic polyneuropathy; E55.9 Vitamin D deficiency, unspecified; D64.9 Anemia, unspecified; J45.909 Unspecified asthma, uncomplicated; E03.9 Hypothyroidism, unspecified; N40.1 Benign prostatic hyperplasia with lower urinary tract symptoms; N13.8 Other obstructive and reflux uropathy; N52.9 Male erectile dysfunction, unspecified; G47.00 Insomnia, unspecified; Z79.84 Long term (current) use of oral hypoglycemic drugs; Z79.899 Other long term (current) drug therapy

== ENCOUNTER → 2017-01-28 | Outpatient (CLI) | payer BC ==
[~2017-01-28] MED LIST changes: +ATOR10TA82 PO; -ATOR10TA88 PO; -LACTATED RINGER'S 1000ML 1,000 ML IV SCH
--- NOTE | 2017-01-28 13:53 | DIAGNOSTIC IMAGING REPORT ---
ABDOMEN ULTRASOUND FOR HERNIA CLINICAL HISTORY: R10.31 Right inguinal pain Z98.890 S/P right inguinal hernia repa COMPARISON STUDY: Abdominal ultrasound 12/15/2015. FINDINGS: Real-time sonographic imaging of the right inguinal region was performed. There appears to be a right inguinal mesh. No evidence for recurrent or residual inguinal hernia. IMPRESSION: No evidence for right inguinal hernia. Electronically signed by: Clovis Villegas M.D. 01/28/2017 1:52 PM Dictated Date/Time: 01/28/2017 1:51 PM
== END | disposition home or self-care (01) ==
LOC: C.ULTRBC 12:43
PROVIDERS: ATTEND Internal Medicine
DX: R10.31 Right lower quadrant pain (principal); Z98.890 Other specified postprocedural states

== ENCOUNTER → 2017-04-22 | Outpatient (CLI) | payer OTHER ==
[~2017-04-22] MED LIST changes: +GABA-1219 PO; -GABA1CAP4 PO
== END | disposition home or self-care (01) ==
LOC: C.LABBFT 15:31
PROVIDERS: ATTEND Physician Assistant Medical
DX: E03.9 Hypothyroidism, unspecified (principal)

== ENCOUNTER → 2017-06-06 | Outpatient (CLI) | payer OTHER | END | disposition home or self-care (01) | LOC: C.LABBFT 10:30 | PROVIDERS: ATTEND Physician Assistant Medical | DX: E03.9 Hypothyroidism, unspecified (principal) ==

== ENCOUNTER 2018-06-08 04:55 | Inpatient (IN) ==
--- NOTE | 2018-05-16 19:56 | PAT Medication Instructions ---
Medication Instructions Date of Service May 17, 2018 Home Medications Pepcid Complete 1 dose PO NEEDED allopurinol 100 mg PO QAM atorvastatin 10 mg PO HS calcium carbonate-vitamin D3 1 tab PO DAILY dexlansoprazole [Dexilant] 60 mg PO NEEDED diltiazem HCl 240 mg PO QAM esomeprazole magnesium [Nexium] 20 mg PO QAM gabapentin 3 tab PO HS hydrocortisone [Cortisone] 1 applic TOPICAL NEEDED hydroxyzine HCl 10 mg PO QPM levothyroxine [Synthroid] 125 mcg PO QPM loperamide-simethicone [Imodium] 1 tab PO NEEDED metformin 500 mg PO QAM montelukast 10 mg PO QAM multivitamin [Multiple Vitamins] 1 TAB PO DAILY tamsulosin 0.4 mg PO DAILY telmisartan 80 mg PO QAM xylitol [Xylimelts] 1 dose NEEDED albuterol sulfate 2 puff INHALATION Q6H NEEDED budesonide [Pulmicort Flexhaler] 2 inh INHALATION BID sildenafil [Viagra] 50 mg PO DAILY NEEDED STOP taking 24 hours before surgery hydrocortisone [Cortisone] 1 applic TOPICAL NEEDED sildenafil [Viagra] 50 mg PO DAILY NEEDED DO NOT take the morning of surgery allopurinol 100 mg PO QAM calcium carbonate-vitamin D3 1 tab PO DAILY metformin 500 mg PO QAM montelukast 10 mg PO QAM multivitamin [Multiple Vitamins] 1 TAB PO DAILY xylitol [Xylimelts] 1 dose NEEDED Take morning of surgery With a small sip of water, OTHERWISE NOTHING TO EAT OR DRINK AFTER MIDNIGHT: Pepcid Complete 1 dose PO NEEDED dexlansoprazole [Dexilant] 60 mg PO NEEDED diltiazem HCl 240 mg PO QAM esomeprazole magnesium [Nexium] 20 mg PO QAM loperamide-simethicone [Imodium] 1 tab PO NEEDED tamsulosin 0.4 mg PO DAILY telmisartan 80 mg PO QAM albuterol sulfate 2 puff INHALATION Q6H NEEDED budesonide [Pulmicort Flexhaler] 2 inh INHALATION BID Take evening before surgery atorvastatin 10 mg PO HS gabapentin 3 tab PO HS hydroxyzine HCl 10 mg PO QPM levothyroxine [Synthroid] 125 mcg PO QPM Other Notes If you have any questions please call us at [phone] or [phone] or [phone] or [phone]
--- NOTE | 2018-05-17 09:16 | Anesthesiology Consultation ---
Date of Service May 17, 2018 Assessment & Plan (1) Encounter for pre-operative examination: Chart Review Chart Review: Acceptable Risk for Surgery and Patient seen in Pre Admission Testing Consults Requested none Teaching & Discussion Pre-Anesthesia Teaching/Discussion Notes: Instructed NPO after midnight before surgery, except medications with 15 cc of water. Medication instructions provided according to the PAT guidelines. History Surgery Operation Date: 06/08/18 13:00 Proposed Procedures p Right Knee Arthroplasty Uni Compartment Versus Total Knee Replacement - Fred Zuniga MD Height/Weight Height: 5 ft 9 in Weight: 92.4 kg Allergies Allergy/AdvReac Type Severity Reaction Status Date / Time animal dander Allergy Unknown HAYFEVER Verified 05/12/18 14:51 TYPE SYMPTOMS gluten Allergy Unknown CELIAC Verified 05/12/18 14:51 DISEASE - NEEDS GLUTEN FREE DIET pollen extracts Allergy Unknown HAYFEVER Verified 05/12/18 14:51 TYPE SYMPTOMS wheat Allergy Unknown WHEAT OATS Verified 05/12/18 14:51 RYE BARLEY-CELIAC DISEASE meloxicam AdvReac Unknown Diarrhea Verified 05/12/18 14:51 tamsulosin AdvReac Unknown Diarrhea Verified 05/12/18 14:51 Dust Allergy Unknown HAYFEVER Uncoded 05/12/18 14:51 TYPE SYMPTOMS Tobacco Allergy Unknown HAYFEVER Uncoded 05/12/18 14:51 SYMPTOMS Medications Home Medications Medication Instructions Recorded Confirmed Last Taken Pepcid Complete 1 dose PO UD PRN 05/12/18 05/12/18 Unknown allopurinol 100 mg PO QAM 05/12/18 05/12/18 05/12/18 atorvastatin 10 mg PO HS 05/12/18 05/12/18 05/11/18 calcium carbonate-vitamin D3 1 tab PO DAILY 05/12/18 05/12/18 Unknown [Calcium 600 + D(3)] dexlansoprazole [Dexilant] 60 mg PO UD PRN 05/12/18 05/12/18 Unknown diltiazem HCl 240 mg PO QAM 05/12/18 05/12/18 05/12/18 esomeprazole magnesium [Nexium 20 mg PO QAM 05/12/18 05/12/18 05/12/18 24HR] gabapentin 3 tab PO HS 05/12/18 05/12/18 05/11/18 hydrocortisone [Cortisone 1 applic TOPICAL UD PRN 05/12/18 05/12/18 Unknown (hydrocortisone)] hydroxyzine HCl 10 mg PO QPM 05/12/18 05/12/18 Unknown levothyroxine [Synthroid] 125 mcg PO QPM 05/12/18 05/12/18 05/11/18 loperamide-simethicone [Imodium 1 tab PO UD PRN 05/12/18 05/12/18 Unknown Multi-Symptom Relief] metformin 500 mg PO QAM 05/12/18 05/12/18 05/12/18 montelukast 10 mg PO QAM 05/12/18 05/12/18 05/12/18 multivitamin [Multiple Vitamins] 1 tab PO DAILY 05/12/18 05/12/18 Unknown telmisartan 80 mg PO QAM 05/12/18 05/12/18 05/12/18 xylitol [Xylimelts] 1 dose MUCOUS MEMBRANE UD PRN 05/12/18 05/12/18 Unknown albuterol sulfate 2 puff INHALATION Q6H PRN 05/17/18 05/17/18 Unknown budesonide [Pulmicort Flexhaler] 2 inh INHALATION BID 05/17/18 05/17/18 Unknown sildenafil [Viagra] 50 mg PO DAILY PRN 05/17/18 05/17/18 Unknown Past Medical History Medical History 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" DENIES KNOWN HX ACTIVE INFECTION Acid reflux Arthritis Asthma BPH (benign prostatic hyperplasia) Bulbar polio HISTORY OF IN 1950 Cardiac murmur HAS BEEN MENTIONED IN PAST Celiac disease Diabetes Frequent urination at night PROSTATE ENLARGED History of agent Gilliam exposure History of anesthesia reaction 2017 HERNIA SURGERY ([facility]) REQUESTED "NOT TO HAVE FIRST SHOT TO RELAX ME" PT REPORTS SPOKE WITH DR HAM ABOUT THIS WITH KNEE SCOPE OR FIRST HERNIA (PT NOT SURE /[facility]) SLOW TO WAKE UP History of depression Hyperlipidemia Hypertension Hypothyroid Tooth infection RECENT 3 ROOT CANALS/TOOTH PULLED 05/11/18..F/U MAY 29 WITH DENTAL FOR PRE OP CLEARANCE/PT INFORMED DR ZUNIGA OF INFO Past Family History Family History Father Family history of colon cancer Mother Family history of colon cancer Past Surgical History Surgical History History of arthroscopy of right knee History of bilateral cataract extraction History of colonoscopy X5 History of hernia surgery RIGHT INGUINAL HERNIA X2 09/03/13 - MAC #3, ETT #7.5 with Grade 2 View History of urologic surgery PROSTATE PROCEDURE (TUNA PROCEDURE) Past Anesthesia History No Hx of Anesthesia Complications (Does request no versed ahead of time. ) and No Family Hx of Anesthesia Complications History of PONV No Motion Sickness Screening History of Motion Sickness: No Social History Smoking Status: Former smoker tobacco type: cigarettes Smoking cigarettes per day: Smoked 2ppd x 15 years Do You Dip or Chew Tobacco: No Smoking End Date: QUIT 40 YRS AND 1 MON AGO Hx Alcohol Use: Yes Alcohol type: other Alcohol Intake Frequency Comment: RUM - 1 DRINK A WEEK Hx Substance Use: No substance use type: does not use Exercise / Class Metabolic Activity II 4-5 Yardwork/Stairs/Walk up hill (Goes to gym 2x week and does strength training. Did go daily until fall when his knee started bothering him. Able to climb FOS, denies CP or SOB. ) Review of Systems Patient denies chest pain, shortness of breath, dyspnea on exertion, cough, palpitations. +Joint pain (knees) +acid reflux (controlled with medications) +wheezing (when he tries to back down on pulmicort) Physical Exam Vital Signs BP: 149/85 P: 70 R: 14 T: 97.7 SPO2: 96% on RA ENMT Thyromental Distance: > or= 3.5 Finger Breadths (4) Mallampati Class: I Neck normal visual inspection and trachea midline; neck extension not limited Respiratory normal respiratory effort Auscultation: lungs clear to auscultation bilaterally Cardiovascular Rate/Rhythm: regular rate and regular rhythm Heart Sounds: no murmur Vessels: no carotid bruit Neurologic moves all extremities Psychiatric Orientation: alert and oriented x 3 Testing Electrocardiogram Date: 05/17/18 Findings: + NSR @ (64) Nonspecific ST abnormality. When compared with ECG of 08/23/16, no significant change was found. Chest X-Ray Date: 05/17/18 Findings: + NAD FINDINGS: Atherosclerosis of the aortic arch. Cardiac silhouette normal in size. Calcified hilar and mediastinal lymph nodes suggested. Calcified granuloma in the left midlung. Lungs and pleural spaces otherwise clear. Degenerative changes of the thoracic spine. Upper abdomen normal. IMPRESSION: 1. No acute cardiopulmonary disease. Other Testing BILATERAL CAROTID DOPPLER STUDY 07/17/15 COMPARISON: None. TECHNIQUE: Real-time, grayscale, and color Doppler sonography of the carotid arteries was performed. Imaging reviewed in the transverse and longitudinal planes. FINDINGS: Antegrade flow is seen in the bilateral vertebral arteries. The brachial pressures are hemodynamically similar. There is bilateral plaque present. The peak systolic velocity within the right ICA is 101 cm/sec. The right systolic ratio is 2.2. The peak systolic velocity within the left ICA is 78 cm/sec. The left systolic ratio is 0.8. IMPRESSION: Slight increased peak systolic velocity ratio on the right suggesting the possibility of 50-60% stenosis. Peak velocity of the ICA however is within normal limits. CTA or MRA might be considered. Laboratory Results 05/17/18 09:59 05/17/18 09:59 Blood Type O Negative 05/17/18 09:59 Antibody Screen NEGATIVE 05/17/18 09:59 PT 10.1 Seconds (9.0-12.0) 05/17/18 09:59 INR 1.0 (0.9-1.1) 05/17/18 09:59 APTT 26.4 Seconds (21.0-31.0) 05/17/18 09:59 Hemoglobin A1c 5.7 % (4.5-5.6) H 05/17/18 09:59
--- NOTE | 2018-05-17 10:31 | XRay Report ---
XR chest Pre-admission PA/Lat CLINICAL HISTORY: 77 years-old Male presenting with preoperative assessment. TECHNIQUE: PA and lateral views of the chest were obtained. COMPARISON: 05/19/2016. FINDINGS: Atherosclerosis of the aortic arch. Cardiac silhouette normal in size. Calcified hilar and mediastina l lymph nodes suggested. Calcified granuloma in the left midlung. Lungs and pleural spaces otherwise clear. Degenerative changes of the thoracic spine. Upper abdomen normal. IMPRESSION: 1. No acute cardiopulmonary disease. Electronically signed by: Pavan Kennedy M.D. 05/17/2018 10:30 AM
[2018-05-17 10:59] LABS: Basophils # (auto) 0.04 K/uL (0-0.2); Basophils % (auto) 0.6 %; Eosinophils # (auto) 0.14 K/uL (0-0.5); Eosinophils % (auto) 2.1 %; Hematocrit (blood only) 41.7 % (42-52); Hemoglobin 14.5 g/dL (14.0-18.0); Immature Granulocytes # (auto) 0.02 K/uL (0.00-0.02); Immature Granulocytes % (auto) 0.3 %; Lymphocytes # (auto) 1.58 K/uL (1.2-3.4); Lymphocytes % (auto) 23.7 %; Mean Corpuscular Hgb Conc 34.8 g/dL (32-36); Mean Corpuscular Volume 95.9 fL (80-100); Mean Platelet Volume 10.4 fL (7.4-10.4); Monocytes # (auto) 1.07 K/uL (0.11-0.59); Neutrophils # (auto) 3.83 K/uL (1.4-6.5); Neutrophils % (auto) 57.3 %; Platelet Count 208 K/uL (130-400); RDW Coefficient of Variation 12.1 % (11.5-14.5); RDW Standard Deviation 42.5 fL (36.4-46.3); Red Blood Count 4.35 M/uL (4.7-6.1); White Blood Count 6.68 K/uL (4.8-10.8)
[2018-05-17 11:06] LABS: BUN Creatinine Ratio 9.7 (10-20); Calcium 9.4 mg/dl (8.5-10.1); Est GFR (African American) 78.3; Est GFR (Non-African American) 67.5; Potassium 4.4 mmol/L (3.5-5.1)
[2018-05-17 11:08] LABS: Estimated Average Glucose 117 mg/dl; Hemoglobin A1C 5.7 % (4.5-5.6)
[2018-05-17 11:12] LABS: Partial Thromboplastin Time 26.4 Seconds (21.0-31.0); Prothrombin Time 10.1 Seconds (9.0-12.0)
--- NOTE | 2018-06-02 08:07 | History and Physical Report ---
DATE OF ADMISSION: 06/08/2018 CHIEF COMPLAINT: Right medial knee pain. HISTORY OF PRESENT ILLNESS: This is a 77-year-old gentleman referred by my partner Dr. Jean Baptiste for a surgical treatment of his right knee. He has got a long history of right knee problems. He had a right knee scoped done by Dr. Jean Baptiste back in 06/24/2015. Since then, he has had persistent progressive increasing medial-sided knee pain. He has been treated with injections over time, which have become less successful. Pain is localized in the medial side of his knee. The more he walks, the more it hurts. He has nighttime pain. He now would like to proceed with surgical treatment. PAST MEDICAL HISTORY: 1. Hypertension. 2. Asthma. 3. Diabetes. 4. Hypothyroidism. 5. Gastroesophageal reflux disease. PAST SURGICAL HISTORY: Previous surgeries include: 1. Right knee arthroscopy done 06/24/2015. 2. Hernia surgery. 3. Cataract surgery. 4. Colonoscopy. ALLERGIES: POLLEN AND ANIMAL DANDER. CURRENT MEDICINES: Include: 1. Micardis. 2. Singulair. 3. Diltiazem. 4. Metformin. 5. Gabapentin. 6. Thyroxine. 7. Hydroxyzine. 8. Lipitor. SOCIAL HISTORY: A 77-year-old male. Does not smoke. One drink per week. FAMILY HISTORY: Noncontributory. REVIEW OF SYSTEMS: Significant for diabetes. Denies any chest pain or shortness of breath. No history of DVT or PE. No known bleeding problems. PHYSICAL EXAMINATION: GENERAL: Shows a healthy, pleasant elderly male. He looks to be in pretty good health. HEENT: Benign. NECK: Supple. No lymphadenopathy. LUNGS: Clear to auscultation. HEART: Has a regular rate and rhythm. ABDOMEN: Soft, nontender, nondistended. EXTREMITIES: Grossly neurovascularly intact except as follows: Examination of the right knee reveals the patient walks with a slight bit of a limp. He has got varus alignment to his knee. Small knee effusion. Range of motion 5-125. There is no instability. He has got a little bit of laxity to varus valgus stressing. X-RAYS: X-rays of the right knee reviewed. Shows advanced right knee medial compartment DJD. He has got complete loss of his medial joint space with what looks to be some AVN of the medial femoral condyle. 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 He has failed conservative treatment and would like to proceed with surgical intervention. Symptoms seem to be mostly all localized in the medial compartment of his knee. PLAN: We talked about treatment options. He would like to have this fixed. We are going to proceed and take him to the operating room and do a partial knee replacement. If we get in there and disease is too bad, we will do a full knee replacement. The risks and benefits of partial versus full knee replacement were explained to the patient including but not limited to DVT, PE, , infection, neurological injury, vascular injury, bleeding problem, pain, limited range of motion, stiffness, failure to relieve symptoms, incomplete relief of symptoms, need for further surgery in the future, fracture, leg length inequality, dislocation, etc. The patient understands and desires to proceed. Informed consent was obtained. We did talk to him about holding his metformin the morning of surgery. He is planning to be discharged to home likely with the [facility] home health assistance.
[2018-06-08] MEDS ORDERED: CEFAZOLIN 2000MG 2,000 MG/15 ML SYR IV SCH (06:00)
[2018-06-08] MEDS ORDERED: GABAPENTIN 300 MG PO SCH (06:00)
[2018-06-08] MEDS ORDERED: LR 500ML BOLUS, THEN 15ML/HR IV SCH (06:00)
[2018-06-08] MEDS ORDERED: BUPIVACAINE LIPOSOME/PF 266 MG, BUPIVACAINE/EPINEPHRINE 50 ML, SODIUM CHLORIDE 0.9% 30 ... INFIL SCH (06:00)
[2018-06-08] MEDS ORDERED: FAMOTIDINE 20 MG TAB PO SCH (06:00)
[2018-06-08] MEDS ORDERED: METOCLOPRAMIDE HCL 10 MG TABLET PO SCH (06:00)
[2018-06-08] MEDS ORDERED: ACETAMINOPHEN 500 MG TAB PO SCH (06:00)
[2018-06-08] MEDS ORDERED: LR 60ML/HR IV SCH (06:00)
[2018-06-08] MEDS ORDERED: ROPIVACAINE 0.5% 5 MG/ML 30 ML VIAL ONE (06:29)
[2018-06-08] MEDS ORDERED: BUPIVACAINE 0.5 % 5 MG/1 ML PF 10ML VIAL ONE (06:29)
[2018-06-08] MEDS ORDERED: TRANEXAMIC ACID 1,000 MG **IV Intra-op IV SCH (06:30)
[2018-06-08] MEDS ORDERED: fentaNYL citrate 100 MCG/2 ML VIAL ONE (06:46)
[2018-06-08] MEDS ORDERED: MIDAZOLAM HCL 1 MG/ML 2ML VIAL ONE (06:46)
[2018-06-08] MEDS ORDERED: PROPOFOL IV EMULSION 10 MG/ML 20 ML VIAL IV ONE (06:48)
[2018-06-08] MEDS ORDERED: LIDOCAINE HCL 2% 2 ML VIAL/AMP(20MG/ML) INFIL ONE (06:48)
--- NOTE | 2018-06-08 06:52 | History & Physical Bridge Note ---
Date of Service June 08, 2018 History & Physical Bridge Note I have examined the patient, reviewed the History & Physical and in the interval since the performance of the History & Physical I have noted the following changes of clinical significance: no changes noted
[2018-06-08] MEDS ORDERED: SODIUM CHLORIDE 0.9% PF 50 ML VIAL ONE (06:55)
[2018-06-08] MEDS ORDERED: BACITRACIN INJ 50,000 UNIT VIAL ONE (06:55)
[2018-06-08] MEDS ORDERED: BUPIVACAINE LIPOSOME 1.3% 266 MG/20 ML VIAL ONE (06:55)
[2018-06-08] MEDS ORDERED: BUPIVACAINE 0.25% 30 ML VIAL ONE (06:56)
[2018-06-08] MEDS ORDERED: EPINEPHrine INJ 1 MG/ML AMP ONE (06:56)
[2018-06-08] MEDS ORDERED: fentaNYL citrate 100 MCG/2 ML VIAL IV PRN (07:10)
[2018-06-08] MEDS ORDERED: ATROPINE SULFATE 0.1 MG/ML 10ML SYR IV PRN (07:10)
[2018-06-08] MEDS ORDERED: ePHEDrine sulfate 50 MG/ML AMP IV PRN (07:10)
[2018-06-08] MEDS ORDERED: HYDROmorphone INJ 1 MG/ML SYRINGE IV PRN (07:10)
--- NOTE | 2018-06-08 09:04 | Post Operative Brief Note ---
Immediate Post Op Note v1 Date of Surgery June 08, 2018 Pre & Post Diagnosis Operation Date: 06/08/18 07:15 Pre-Op Diagnosis: Right Knee Medial Compartment Degenerative Joint Disease + AVN Post-Op Diagnosis: Right Knee Medial Compartment Degenerative Joint Disease + AVN Procedure Operation Date: 06/08/18 07:15 Actual Procedures p Right Knee Arthroplasty UniCompartmental(Right) - Fred Zuniga MD Surgeon Fred Zuniga MD [employer] Twister Helper Maria Fernanda, PAC Estimated Blood Loss 20 Findings Consistent with Post-Op Diagnosis Fluids 1300 cc Specimens Right Knee Drains Danielson Catheter (A 16 Lebanese danielson catheter was inserted by GISELA Stafford, without difficulty, clear yellow urine obtained, output to be monitored by Anesthesia.) Anesthesia Type Spinal MAC Complications none Disposition Accompanied Patient To Recovery: No Disposition: Recovery Room
--- NOTE | 2018-06-08 09:25 | XRay Report ---
XR knee RT 2V routine CLINICAL HISTORY: Surgical Post Op COMPARISON: None. DISCUSSION: Anatomic alignment post total medial compartment hemiarthroplasty. Expected soft tissue p ostoperative change. IMPRESSION: Anatomic alignment post medial compartment hemiarthroplasty. The above report was generated using voice recognition software. It may contain grammatical, syntax or spelling errors. Electronically signed by: Glenn Hassan M.D. 06/08/2018 9:24 AM
--- NOTE | 2018-06-08 10:08 | Anesthesiology Progress Note ---
Date of Service June 08, 2018 Anesthesia Post Procedure Vital Signs Vital Signs: Temp Pulse Pulse Resp BP Pulse Ox 06/08/18 09:45 36.8 C 64 16 145/61 H 99 06/08/18 09:35 64 16 137/64 99 06/08/18 09:25 63 16 138/66 99 06/08/18 09:15 62 16 133/71 99 06/08/18 09:09 37.0 C 60 16 126/61 99 06/08/18 05:38 36.4 C L 62 20 169/81 H 98 Pain Intensity Right Knee: Pain Intensity: 8 Notes Mental Status: alert / awake / arousable and participated in evaluation Patient Amnestic to Procedure: Yes Nausea / Vomiting: adequately controlled Pain: adequately controlled Airway Patency, RR, SpO2: stable & adequate BP & HR: stable & adequate Hydration State: stable & adequate Neuraxial Anesthesia: was administered and sensory block is resolving Anesthetic Complications: no major complications apparent
[2018-06-08] MEDS ORDERED: GLUCOSE 10 TABS/TUBE PO PRN (10:19)
[2018-06-08] MEDS ORDERED: CARBOHYDRATES FOR HYPOGLYCEMIA PO PRN (10:19)
[2018-06-08] MEDS ORDERED: GLUCOSE 40% GEL 15 GM TUBE PO PRN (10:19)
[2018-06-08] MEDS ORDERED: ONDANSETRON INJ 2 MG/ML 2 ML VIAL IV PRN (10:19)
[2018-06-08] MEDS ORDERED: PANTOprazole 40 MG TAB PO PRN (10:19)
[2018-06-08] MEDS ORDERED: ALUMINUM/MAGNESIUM SUSP 30 ML UDC PO PRN (10:19)
[2018-06-08] MEDS ORDERED: METOCLOPRAMIDE HCL INJ 5 MG/ML 2 ML VIAL IV PRN (10:19)
[2018-06-08] MEDS ORDERED: MAGNESIUM HYDROXIDE SUSP 30 ML UDC PO PRN (10:19)
[2018-06-08] MEDS ORDERED: PHARMACY GLYCEMIC MGMT CONSULT STA (10:19)
[2018-06-08] MEDS ORDERED: DEXTROSE 50% 50 ML SYRINGE IV PRN (10:19)
[2018-06-08] MEDS ORDERED: HYDROmorphone INJ 0.5 MG/0.5 ML SYR IV PRN (10:19)
[2018-06-08] MEDS ORDERED: GLUCAGON FOR INJ 1 MG VIAL SQ PRN (10:19)
[2018-06-08] MEDS ORDERED: BISACODYL 10 MG SUPP PR PRN (10:19)
[2018-06-08] MEDS ORDERED: LOPERAMIDE HCL 2 MG CAP PO PRN (10:19)
[2018-06-08] MEDS ORDERED: TRAMADOL HCL 50 MG TABLET PO PRN (10:19)
[2018-06-08] MEDS ORDERED: NON-FORMULARY MEDICATION (Sildenafil [Viagra] 50 MG) PO PRN (10:19)
[2018-06-08] MEDS ORDERED: NALOXONE HCL 0.4 MG/1 ML VIAL/CARP IV PRN (10:19)
[2018-06-08] MEDS ORDERED: ALBUTEROL HFA 8 GM INHALER INH PRN (10:19)
[2018-06-08] MEDS ORDERED: TAMSULOSIN HCL 0.4 MG CAP PO PRN (10:19)
[2018-06-08] MEDS ORDERED: HYDROCORTISONE 1% CRM 30 GM TUBE EXT PRN (10:19)
--- NOTE | 2018-06-08 10:34 | Operative Report ---
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 PROCEDURE PERFORMED: Right Biomet Jones partial knee replacement. COMPLICATIONS: None. ESTIMATED BLOOD LOSS: 20 mL. FLUID REPLACEMENT: 1300 mL crystalloid fluid replacement. TOURNIQUET TIME: 67 minutes at 300 mmHg. ANESTHESIA: Spinal. DRAINS: None. SPECIMENS: Right knee sent for pathology. OPERATIVE INDICATIONS: The patient is a 77-year-old gentleman who has had a several-year history of gradually increasing right knee pain and discomfort. He has been through extensive conservative treatment and had his right knee scoped back in 2016 with minimal relief. X-rays overtime showed progressive knee arthritis and developed avascular necrosis. His symptoms were all localized in the medial side of his knee. The patient elected to proceed with partial knee replacement. OPERATIVE FINDINGS: Operative findings revealed slight fixed varus deformity to his knee. He had a large segment of avascular necrosis of the medial femoral condyle. There were some grade 3 and 4 changes of the tibia. The ACL and PCL were intact. The lateral compartment was well preserved. He did have some focal grade 3 changes of the trochlea, but the patella was pretty well preserved. He did have a moderate to large knee joint effusion. OPERATIVE IMPLANTS: Operative implants consisted of: 1. Biomet Jones size medium femoral component. 2. Biomet right medial size C tibial tray. 3. A 3 mm mobile-bearing insert. OPERATIVE PROCEDURE: The patient was taken to the operating room, identified and placed on the operating table in supine position. All contact areas were appropriately padded. IV antibiotics provided by anesthesia team. A spinal anesthetic and adductor canal block had been provided in the holding area. Hendrickson catheter was placed in sterile fashion. A right thigh tourniquet was then placed and the right lower extremity was then prepped and draped in usual sterile fashion. The right leg was elevated and exsanguinated with Esmarch and tourniquet was placed at 300 mmHg. An anterior approach to the knee was then performed through a longitudinal incision beginning at the superior pole of the patella and extending just medial to the tibial tubercle. Sharp dissection was carried through the subcutaneous tissues down to the level of the extensor mechanism. A medial parapatellar arthrotomy incision was made. Some subperiosteal dissection was carried out medially. Great care was taken to protect the MCL at all times. The fat pad was resected. I examined the ACL and it was intact. There was a large segment of avascular necrosis in the medial femoral condyle. I removed some osteophytes from the intercondylar notch area. The femur was sized to a size medium. The medium spoon was placed. The external tibial alignment jig was then placed in the anterior face of the tibia and attached to the spoon. The tibial guide was pinned in place. The cut was made for the tibial component. We then sized this tibia to a size C. The intramedullary canal was entered with a sharp drill. Intramedullary guide giuliano was placed. A femoral template was then placed and set for a 4. This was attached to the intramedullary guide. The holes were drilled for the femoral component. Posterior cutting guide was then placed and the posterior cut was made. The 0 spigot was used to mill the distal femur. I then trialed the knee and the 4 insert was a bit tight in flexion, but felt appropriate and then the 1 in extension. I then used the 3 spigot and milled the distal femur. By doing this, we did not quite get to the base of the anterior aspect of the AVN segment, but removed most of it. We then trialed the knee again and the 4 insert was just a little bit tight in flexion and the 4 insert fit appropriate in extension. As a result, we ended up using the 3 insert. The posterior osteophyte cutting guide was placed. The anterior femur was milled for the femoral component and the posterior cut was made to remove any posterior osteophytes. The cement drill was used to drill holes in the distal femur for cement interdigitation. I did curette out the remaining of this AVN segment to allow for cement interdigitation. The tibial tray was then pinned in place and the toothbrush blade was used to create a defect for the tibial keel. I then irrigated the wound extensively. We did inject locally with a total of 100 mL of combination of 20 mL of Exparel, 30 mL of normal saline, 50 mL of 0.25% Marcaine with epinephrine. We then trialed the knee with the trials. The 4 just was a little bit tight, particularly in flexion. Therefore, I elected to use 3 insert. All trial implants were removed. The knee was cleaned of all soft tissue debris. A single batch of Palacos G cement was mixed. A size 3 right medial tibial tray was then placed followed by a medium femoral component. I used the 4 feeler gauge to pressurize with the knee in 30 degrees of extension. All extraneous cement was removed. Once the cement hardened, a final cement check was performed. I trialed the knee again and it just seemed a bit too tight with the 4 insert. Therefore, I used a 3 insert. It did tend to spin just a little bit in extension, but this was felt to be acceptable and there were no signs that it would spin out. The 3 insert was placed. Attention was then drawn toward closing. The wound was irrigated with copious amounts of pulsatile lavage solution. The tourniquet was then let down for a tourniquet time of 67 minutes. Hemostasis was assured with use of electrocautery. Extensor mechanism was then closed with #1 Vicryl suture in a [id number] fashion. Subcutaneous tissues were then closed with #2 Dexon suture in a buried interrupted fashion. Skin was closed with skin latoya. Leg was then cleaned and dried and a sterile dressing of Xeroform, 4 x 4's, sterile cast padding and Fan bandage were applied. The patient then transferred to the recovery room in stable condition. The patient tolerated the procedure well with no complications. All needle and sponge counts were correct at the end of the operation. I attest to the content of the Intraoperative Record and any orders documented therein. Any exception s are noted below.
[2018-06-08] MEDS ORDERED: PHARMACY GLYCEMIC MGMT CONSULT PRN (11:07)
--- NOTE | 2018-06-08 12:25 | Pharmacy Report ---
Glycemic Control Consultation - Date of Service June 08, 2018 - Scope Scope: Glycemic Pharmacist consulted by Dr Zuniga on 06/08/18 for glycemic control and to write orders per [facility] inpatient glycemic control protocol - Objective Weight: 90.407 kg Accuchecks BSG (last 24hrs): 06/08/18 06/08/18 06/08/18 05:12 09:23 12:08 POC Glucose 105 H 114 H 128 H HbA1c: Hemoglobin A1c 5.7 % (4.5-5.6) H 05/17/18 09:59 - Recent Pertinent Medications Outpatient Anti-diabetic Regimen: * metformin 500 mg daily Risk Factors for Insulin Resistance: * Recent Surgery: POD 0 for knee surgery * Diet: T2DM - Assessment & Plan Assessment & Plan: ASSESSMENT: * Patient admitted for R TKA surgery with PMH of well controlled T2DM. Patient's pre-surgery blood sugar was 105 mg/dL and at lunch 128 mg/dL. Appears to have received no steroids. Will start standard weight-based stress of 2 Novolog. Ordered PRN Lantus for dinner in case blood sugars climb later today- this will be based upon weight if blood sugar over 160 mg/dL. * ADA & AACE recommend a goal blood sugar range 140-180 mg/dl for the majority of critically ill & non-critically ill patients. However, more stringent targets may be selected in individual cases. Will utilize more stringent goal of 110-140mg/dl based on patient age & comorbidities. Additionally, tighter glycemic control is warranted to facilitate wound healing. * Pt is maintained on oral antidiabetic agents as an outpatient * Oral agents are not recommended for inpatient use d/t drug interactions, changing PO intake, and difficulty titrating for acute hyper/hypoglycemia. ADA recommends re-initiating outpatient oral agents 1-2 days prior to discharge if/when appropriate if they were held on admission. * Will hold oral agents for admission and utilize SQ basal bolus insulin regimen which is the recommended regimen for inpatient glycemic control. * Will initiate weight based insulin dosing for insulin darwin patient and titrate based on BSG trends. PLAN FOR INPATIENT GLYCEMIC CONTROL: * Holding outpatient oral diabetes medications * Basal insulin * Lantus 0-20 units SQ with dinner if blood sugar over 160 mg/dL * Lantus 10 units if blood sugar 160-200 mg/dL * Lantus 20 units if blood sugar greater than 200 mg/dL * Bolus insulin * NovoLog per scale ACHS or Q6hrs while NPO * Goal Range: Low 110 mg/dL - High 140 mg/dL * Correction Factor: 30 mg/dL/unit * Nutritional / Prandial insulin per carb ratio of 1 unit per 10 grams CHO consumed * Please note that the plan above was derived based on current level of insulin resistance and hospital stress. These recommendations are appropriate for inpatient admission only. Plan of care upon discharge will need to be reassessed to avoid potential outpatient hypo/hyperglycemia. Thank you.
[2018-06-08] MEDS: LEVOTHYROXINE SODIUM 125 MCG TABLET PO SCH (12:37)
[2018-06-08] MEDS: KETOROLAC TROMETHAMINE 15 MG/ML VIAL IV SCH ×3 (12:37→23:37)
[2018-06-08] MEDS ORDERED: FAMOTIDINE 20 MG TAB PO PRN (13:00)
[2018-06-08] MEDS ORDERED: SIMETHICONE 80 MG CHEW PO PRN (13:04)
[2018-06-08] MEDS: INSULIN ASPART 100 UNITS/ML 3 ML PEN SC SCH ×3 (13:49→22:11)
[2018-06-08] MEDS: ACETAMINOPHEN 500 MG TAB PO SCH ×2 (13:52→21:09)
[2018-06-08] MEDS: CEFAZOLIN 2000MG 2,000 MG/15 ML SYR IV SCH ×2 (13:53→21:07)
[2018-06-08] MEDS: SODIUM CHLORIDE 0.9% 1000ML 1,000 ML IV SCH ×2 (14:25→21:05)
--- NOTE | 2018-06-08 14:43 | Progress Note ---
DATE: 06/08/2018 SUBJECTIVE: A 77-year-old gentleman postop from a right partial knee replacement. He is doing well. He rates his pain at 1. No chest pain or shortness of breath. Not feeling dizzy or lightheaded. OBJECTIVE: VITAL SIGNS: Temperature 36.4. Vital signs stable. GENERAL: Reveals a pleasant elderly male. He is sitting up in bed, talking to his . He looks comfortable. LUNGS: Clear to auscultation. HEART: Regular rate and rhythm. ABDOMEN: Soft, nontender, nondistended. EXTREMITIES: Grossly neurovascularly intact except as follows. Examination of the right lower extremity reveals the leg to be well aligned. Dressing is clean, dry and intact. He can dorsiflex and plantarflex his foot appropriately. He is neurologically intact. X-RAYS: X-ray of the right knee from Recovery Room reviewed. It shows a right partial knee replacement. Components looked to be in good position. No signs of problems. ASSESSMENT: A 77-year-old gentleman, diabetic, postop from a right partial knee replacement, doing well. Pain is controlled. He is neurologically intact. PLAN: 1. DVT prophylaxis including thigh-high TEDs, SCDs, and aspirin twice a day. 2. PT/OT. Weightbear as tolerated. Right total knee protocol. 3. Pain control, doing pretty well with current pain regimen. 4. IV antibiotics x24 hours. 5. Diabetes. We will use insulin sliding scale coverage in the hospital. 6. Disposition: He is planning to be discharged to home with home health once adequately recovered.
[2018-06-08] MEDS ORDERED: LANTUS PER UNIT CHARGE SQ SCH (16:30)
[2018-06-08] MEDS: FERROUS GLUCONATE 324 MG TAB PO SCH (17:45)
[2018-06-08] MEDS: ASCORBIC ACID 500 MG TAB PO SCH (17:45)
[2018-06-08] MEDS ORDERED: ATORVASTATIN 10 MG TAB PO SCH (21:00)
[2018-06-08] MEDS ORDERED: GABAPENTIN 300 MG CAP PO SCH (21:00)
[2018-06-08] MEDS ORDERED: SENNA 8.6 MG TAB PO SCH (21:00)
[2018-06-08] MEDS ORDERED: hydrOXYzine HCl 10 MG TAB PO SCH (21:00)
[2018-06-08] MEDS: DOCUSATE SODIUM 100 MG CAP PO SCH (21:07)
[2018-06-08] MEDS: ASPIRIN 81 MG ECTAB PO SCH (21:08)
[2018-06-08] MEDS: BUDESONIDE 90 MCG INH INH SCH (21:08)
[2018-06-09] MEDS: ACETAMINOPHEN 500 MG TAB PO SCH (05:52)
[2018-06-09] MEDS: KETOROLAC TROMETHAMINE 15 MG/ML VIAL IV SCH (05:53)
[2018-06-09] MEDS: LEVOTHYROXINE SODIUM 125 MCG TABLET PO SCH (05:53)
--- NOTE | 2018-06-09 07:41 | Progress Note ---
DATE: 06/09/2018 SUBJECTIVE: A 77-year-old gentleman postop day 1 from a right partial knee replacement, he is doing well. Pain is controlled. Had a pretty good night. No chest pain or shortness of breath. Not feeling dizzy or lightheaded. OBJECTIVE: VITAL SIGNS: Temperature 37.1. Vital signs stable. GENERAL: Physical examination shows a pleasant, middle-aged male. I had to wake him this morning. He looks comfortable. EXTREMITIES: Examination of the right leg reveals the leg to be well aligned. Dressing is clean, dry, and intact. He can do a good straight leg raise. He is neurologically intact. ASSESSMENT: A 77-year-old gentleman postop day 1 from right partial knee replacement, doing well. Pain is controlled. PLAN: 1. DVT prophylaxis including thigh-high TEDs, SCDs, and aspirin twice a day. 2. PT/OT. Weight bear as tolerated. Right total knee protocol. 3. Pain control. Doing well with current pain regimen. 4. Disposition: Plan to discharge to home later today likely with some home health.
--- NOTE | 2018-06-09 08:01 | Anesthesiology Progress Note ---
Date of Service June 09, 2018 Anesthesia Post Procedure Vital Signs Vital Signs: Temp Pulse Pulse Pulse Resp BP Pulse Ox 06/09/18 07:54 37 C 66 16 154/67 H 99 06/09/18 03:39 37.1 C 70 14 161/78 H 95 06/08/18 23:42 36.9 C 71 14 168/70 H 95 06/08/18 19:37 36.5 C 56 L 16 173/69 H 98 06/08/18 14:58 36.3 C L 53 L 16 158/76 H 97 06/08/18 13:05 56 L 18 167/79 H 97 06/08/18 12:09 54 L 16 151/71 H 98 06/08/18 11:10 57 L 16 156/75 H 95 06/08/18 10:19 55 L 16 157/74 H 94 06/08/18 10:10 36.4 C L 58 L 18 152/72 H 100 06/08/18 09:45 36.8 C 64 16 145/61 H 99 06/08/18 09:35 64 16 137/64 99 06/08/18 09:25 63 16 138/66 99 06/08/18 09:15 62 16 133/71 99 06/08/18 09:09 37.0 C 60 16 126/61 99 Pain Intensity Right Knee: Pain Intensity: 2 Notes Mental Status: alert / awake / arousable and see notes below Patient Amnestic to Procedure: Yes Nausea / Vomiting: adequately controlled Pain: adequately controlled Airway Patency, RR, SpO2: stable & adequate BP & HR: stable & adequate Hydration State: stable & adequate Neuraxial Anesthesia: was administered and sensory block resolved Anesthetic Complications: no major complications apparent and Pt Satisfied with anesthetic care
[2018-06-09] MEDS: DOCUSATE SODIUM 100 MG CAP PO SCH (08:59)
[2018-06-09] MEDS: ASPIRIN 81 MG ECTAB PO SCH (08:59)
[2018-06-09] MEDS: ASCORBIC ACID 500 MG TAB PO SCH (08:59)
[2018-06-09] MEDS: FERROUS GLUCONATE 324 MG TAB PO SCH (08:59)
[2018-06-09] MEDS: BUDESONIDE 90 MCG INH INH SCH (09:00)
[2018-06-09] MEDS ORDERED: TELMISARTAN 40 MG TAB PO SCH (09:00)
[2018-06-09] MEDS ORDERED: CALCIUM 600MG + VIT D 400 IU TAB PO SCH (09:00)
[2018-06-09] MEDS ORDERED: dilTIAZem HCL 240 MG CAPCR PO SCH (09:00)
[2018-06-09] MEDS ORDERED: PANTOprazole 40 MG TAB PO SCH (09:00)
[2018-06-09] MEDS ORDERED: MONTELUKAST SODIUM 10 MG TABLET PO SCH (09:00)
[2018-06-09] MEDS ORDERED: MULTIVITAMIN TAB PO SCH ×2 (09:00)
[2018-06-09] MEDS ORDERED: ALLOPURINOL 100 MG TAB PO SCH (09:00)
[2018-06-09] MEDS: INSULIN ASPART 100 UNITS/ML 3 ML PEN SC SCH (09:03)
--- NOTE | 2018-06-13 14:52 | Discharge Summary ---
ADMITTING PHYSICIAN AND SURGEON: Dr. Fred Zuniga. 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 PROCEDURE PERFORMED: Right partial knee replacement. SECONDARY DIAGNOSES: Hypertension, asthma, diabetes, hypothyroidism, gastroesophageal reflux disease. CONSULTS: None obtained. HISTORY AND PHYSICAL EXAMINATION: Well documented in the patient's chart. HOSPITAL COURSE: The patient was admitted on 06/08/2018 underwent partial knee replacement. She tolerated the procedure well. There were no complications. He was transferred to the PACU postoperatively and later to the orthopedic for further care. He was given Ancef for antibiotic prophylaxis, CLARIBEL stockings, SCDs and aspirin for DVT prophylaxis. Hemoglobin, hematocrit and vital signs were monitored during his hospital stay and remained stable, did not require any blood transfusions. There were no complications. By postoperative day 1, he was tolerating a diabetic diet. Pain was controlled with oral pain medicine. He was participating in physical therapy. Postop day 1, he was discharged home, set up with home health services, given printed discharge instructions including new prescriptions for extra strength Tylenol, aspirin and tramadol. Continue his home medicines, continue physical therapy, weightbearing as tolerated, CLARIBEL stockings. Follow up approximately 2 weeks postoperatively or sooner if there are any problems or concerns.
== END 2018-06-09 10:46 | disposition home health service (06) | DRG 470 ==
LOC: ASU 04:55 → 3E 09:10